=== PATIENT | male | born 1955 | race Two or more races ===

== ENCOUNTER 2017-10-20 09:23 | Emergency (ER) | payer SELFPAY, OTHER ==
[2017-10-20 09:54] LABS: ADD MAN DIFF? NO
[2017-10-20 10:00] LABS: BASO % 0 % (0-3); EOS % 0 % (0-3); HEMATOCRIT 41.8 % (39.0-53.0); HEMOGLOBIN 14.2 g/dL (13.0-17.5); LYMPH # 0.7 x10^3/uL (1.0-4.8); LYMPH % 9 % (24-48); MEAN CORPUSCULAR HEMOGLOBIN 31 pg (25-35); MEAN CORPUSCULAR HGB CONC 34 g/dL (31-37); MEAN CORPUSCULAR VOLUME 92 fL (79-100); MONO # 0.4 x10^3/uL (0.0-1.1); MONO % 6 % (0-9); NEUT # 5.9 x10^3uL (1.8-7.7); NEUT % 84 % (31-73); PLATELET COUNT 226 x10^3/uL (140-400); RED BLOOD COUNT 4.55 x10^6/uL (4.30-5.70); RED CELL DISTRIBUTION WIDTH 14.4 % (11.5-14.5)
[2017-10-20] MEDS: ONDANSETRON PF 4 MG/2 ML VIAL. IV (10:01)
[2017-10-20] MEDS: KETOROLAC 30 MG/ML INJ. IV (10:02)
[2017-10-20 10:11] LABS: ANION GAP 8 (6-14); BLOOD UREA NITROGEN 18 mg/dL (8-26); BUN/CREATININE RATIO 16 (6-20); CALCIUM 9.4 mg/dL (8.5-10.1); CARBON DIOXIDE 28 mmol/L (21-32); CHLORIDE 105 mmol/L (98-107); CREATININE 1.1 mg/dL (0.7-1.3); GFR 67.8; GLUCOSE 131 mg/dL (70-99); POTASSIUM 3.9 mmol/L (3.5-5.1); SODIUM 141 mmol/L (136-145)
[2017-10-20 10:14] LABS: ALBUMIN 4.1 g/dL (3.4-5.0); ALBUMIN/GLOBULIN RATIO 1.1 (1.0-1.7); ALK PHOS 122 U/L (46-116); ALT (SGPT) 41 U/L (16-63); AST (SGOT) 33 U/L (15-37); LIPASE 98 U/L (73-393); TOTAL BILIRUBIN 0.4 mg/dL (0.2-1.0)
[2017-10-20 11:18] LABS: BILIRUBIN,URINE NEGATIVE (NEG); CLARITY,URINE CLEAR; COLOR,URINE AMBER; GLUCOSE,URINE NEGATIVE (NEG); NITRITE,URINE NEGATIVE (NEG); PROTEIN,URINE 30 mg/dL (NEG-TRACE)
[2017-10-20 11:39] LABS: BACTERIA,URINE 0 /HPF (0-FEW); RBC,URINE >40 /HPF (0-2); WBC,URINE 0 /HPF (0-4)
[2017-10-20] MEDS: IV NORMAL SALINE 1000ML BAG 1,000 ML IV (11:55)
== END 2017-10-20 12:30 | disposition home or self-care (01) ==
LOC: ER 09:23
DX: N13.2 Hydronephrosis with renal and ureteral calculous obstruction (principal)
CPT/HCPCS: 36415; 74176; 80053; 81001; 83690; 85025; 96374; 96375; 99285-25; J1885; J2405; J7030